=== PATIENT | female | born 1965 | race Two or more races ===

== ENCOUNTER 2018-07-31 09:34 | Outpatient (CLI) | payer OTHER ==
[~2018-07-31 09:34] MED LIST: TUSSI PRES-B L120 M1 PO; ZITHROMAX TRI-500 MG PO
== END 2018-07-31 09:40 | disposition home or self-care (01) ==
LOC: MAMO-SONO 09:34
DX: N63.10 Unspecified lump in the right breast, unspecified quadrant (principal); N63.20 Unspecified lump in the left breast, unspecified quadrant; Z12.31 Encounter for screening mammogram for malignant neoplasm of breast; D25.9 Leiomyoma of uterus, unspecified

== ENCOUNTER 2018-12-23 06:26 | Emergency (ER) | payer OTHER ==
[~2018-12-23] VITALS: Ht 170.2 cm; Wt 74.8 kg
[2018-12-23] MEDS ORDERED: DUI500 PO (07:30)
[2018-12-23] MEDS ORDERED: ORASEP SPRAY30 ML MM (07:30)
== END 2018-12-23 07:44 | disposition home or self-care (01) ==
LOC: ER 06:26
DX: J03.80 Acute tonsillitis due to other specified organisms (principal)

== ENCOUNTER 2018-12-26 03:02 | Emergency (ER) | payer OTHER ==
[~2018-12-26] VITALS: Ht 170.2 cm; Wt 74.8 kg
[~2018-12-26 03:02] MED LIST changes: +DUI500 PO; +ORASEP SPRAY30 ML MM
[2018-12-26] MEDS ORDERED: MEDROL8 MG PO (07:40)
== END 2018-12-26 07:51 | disposition home or self-care (01) ==
LOC: ER 03:02
DX: J03.80 Acute tonsillitis due to other specified organisms (principal)

== ENCOUNTER 2020-08-24 12:10 | Outpatient (CLI) | payer OTHER ==
[~2020-08-24 12:10] MED LIST changes: +MEDROL8 MG PO
== END 2020-08-24 12:44 | disposition home or self-care (01) ==
LOC: MAMO-SONO 12:10
PROVIDERS: ATTEND Obstetrics & Gynecology
DX: R10.2 Pelvic and perineal pain (principal); N60.11 Diffuse cystic mastopathy of right breast; N60.12 Diffuse cystic mastopathy of left breast; Z12.31 Encounter for screening mammogram for malignant neoplasm of breast